=== PATIENT | male | born 2000 | race Caucasian/White ===

== ENCOUNTER 2021-12-17 19:15 | Emergency (ER) | payer MEDICAID, SELFPAY ==
[2021-12-17 19:21] VITALS: BP 131/86; PULSE 65; RESP 18; TEMP 36.7; O2SAT 99; BMI 52.7
--- NOTE | 2021-12-17 19:44 | ED.PSYCH ---
HPI - Psych General Chief Complaint: Psychiatric Symptoms Stated Complaint: hearing voices, SI Time Seen by Provider: 12/17/21 19:44 Source: patient Mode of arrival: ambulatory Limitations: no limitations History of Present Illness HPI Narrative: 21 yo male with a history of depression presents to the ER for worsening depression. He states he has been hearing a voice telling him that he doesn't deserve to live and he would feel better if he was not alive. He approached his mother today and said he needed to get help. Patient reports suffering from longstanding depression, he meets with a therapist once a week for the last 1 year. He is not on any medications. He reports slightly he has been had worsening depression and thoughts of not wanting to live any longer. He has no plan to commit suicide. He feels like he has no way to cope and he is ?just living to survive. ? He presents with his mother who is very worried about his current state. She reports he is not sleeping, not eating well and has lost a lot a weight. He had been drinking alcohol frequently but stopped 10 days ago. He denies going through withdrawal home. Only drugs he uses is marijuana. He works in a marijuana plant. MD complaint: suicidal ideation and feels depressed Onset (ago): unknown Duration: constant History of same: Yes Relieving factors: therapy Associated psychiatric symptoms: depression and suicidal ideation Associated symptoms: insomnia Treatments prior to arrival: none If self harm: admits thoughts of self harm Related Data Allergies Allergy/AdvReac Type Severity Reaction Status Date / Time amoxicillin Allergy Intermediate Rash Verified 12/17/21 19:20 Review of Systems Review of Systems: Constitutional: No Fever, No Chills ENT/Mouth: No sore throat, No Rhinorrhea Cardiovascular: No Chest Pain, No SOB, No Orthopnea, No Edema Respiratory: No Cough, No Sputum, No Wheezing, No dyspnea Gastrointestinal: No Nausea, No Vomiting, No Diarrhea, No abdominal Pain, No Hematochezia, No Melena Genitourinary: No Dysuria, No Urinary Frequency, No Hematuria Musculoskeletal: No joint pain, No Myalgias Skin: No Skin Lesions, No rash Neuro: No Weakness, No Numbness, No Dizziness, No Headache Psych: +Anxiety/Panic, + Depression, +SI, No HI, No VH, +AH Heme/Lymph: No Bruising, No Lymphadenopathy Endocrine: No Polyuria, No Polydipsia PMFSH Social History Social History Advance Directives: No Advance Directives Information Provided: No Physical Exam Vital Signs: Vital Signs: Last Vital Signs Temp 98.0 F 12/17/21 19:21 Pulse 65 12/17/21 19:21 Resp 18 12/17/21 19:21 BP 131/86 12/17/21 19:21 Pulse Ox 99 12/17/21 19:21 BMI result Body Mass Index 52.7 Appearance: Alert. Oriented X3. No acute distress. Eyes: Pupils equal, round and reactive to light. ENT: Pharynx normal. Neck: Normal inspection. Neck supple. CVS: Normal heart rate and rhythm. Pulses normal. Respiratory: No respiratory distress. Breath sounds normal. Abdomen: Soft and nontender. +BS x4 Skin: Skin warm and dry. Normal skin color. Normal skin turgor. No rashes. Extremities: No lower extremity edema. Neuro/psych: Oriented X 3. No motor deficit. No sensory deficit. CN II-XII intact. Makes eye contact, flat affect, depressed. Appropriate. Course Course Course Narrative: 21-year-old male with history of depression presents to the ER for evaluation of worsening depression and new onset of a voice telling him would be better off without him. He has no plan for suicide. He presents with his mother was worried about him. He is interested in his admission for initiation of psychiatric medications, group therapy and coping mechanisms. Will get lab workup, once medically cleared will have the crisis team evaluate him. Reevaluation(s) Reevaluation #1: Labs unremarkable. Seen by N and has been accepted into [facility] Facility in [place]. Mom to transport him there tonight. Stable for d/c. MDM - Psych Lab Data Result diagrams: 12/17/21 20:13 12/17/21 20:13 Labs: Lab Results 12/17/21 12/17/21 12/17/21 Range/Units 20:13 20:13 20:13 WBC 9.8 (4.8-10.8) X10*3/uL RBC 5.04 (4.60-5.80) X10*6/uL Hgb 14.7 (14.0-18.0) g/dl Hct 42.5 (42.0-52.0) % MCV 84.3 (80.0-98.0) fL MCH 29.2 (27.0-33.0) pg MCHC 34.6 (31.0-36.0) g/dl RDW 13.1 (11.0-16.0) % Plt Count 205 (160-400) X10*3/uL MPV 12.7 H (9.4-12.4) fL Immature Gran % (Auto) 0.4 (0.0-0.4) % Neut % (Auto) 70.3 (45-73) % Lymph % (Auto) 22.4 (20-40) % [place] % (Auto) 4.9 (2-11) % Eos % (Auto) 1.8 (0-4) % Baso % (Auto) 0.2 (0-2) % Lymph # (Auto) 2.2 (1.2-4.9) X10*3/uL [place] # (Auto) 0.5 (0.1-1.2) X10*3/uL Eos # (Auto) 0.2 (0.0-0.4) X10*3/uL Baso # (Auto) 0.0 (0.0-0.2) X10*3/uL Abs Immat Gran (auto) 0.04 H (0.00-0.03) X10*3/uL Absolute Neuts (auto) 6.9 (2.0-8.3) x10*3/uL Absolute Nucleated RBC 0.000 (0.0-0.012) X10*3/uL Nucleated RBC % (auto) 0.0 (0.0-0.2) /100WBC Sodium 142 (135-145) mmol/L Potassium 4.2 (3.3-5.1) mmol/L Chloride 107 (96-108) mmol/L Carbon Dioxide 25 (22-29) mmol/L Anion Gap 14 (12-20) BUN 9 (9-16) mg/dL Creatinine 0.89 (0.5-1.4) mg/dL Estim Creat Clear Calc 144.2 Estimated GFR > 60 Random Glucose 93 (60-115) mg/dL Calcium 9.5 (8.4-10.2) mg/dL Magnesium 2.0 (1.6-2.6) mg/dL Total Bilirubin 0.8 (0.0-1.0) mg/dL Direct Bilirubin 0.3 (0.0-0.5) mg/dL AST 37 (5-37) U/L ALT 95 H (0-40) U/L Alkaline Phosphatase 61 (39-117) U/L Total Protein 7.7 (6.5-8.0) g/dL Albumin 4.0 (3.5-5.0) g/dL Ethyl Alcohol mg/dL COVID-19 ([facility]) Negative (Negative) COVID-19 Clin Com See Note 12/17/21 Range/Units 20:13 WBC (4.8-10.8) X10*3/uL RBC (4.60-5.80) X10*6/uL Hgb (14.0-18.0) g/dl Hct (42.0-52.0) % MCV (80.0-98.0) fL MCH (27.0-33.0) pg MCHC (31.0-36.0) g/dl RDW (11.0-16.0) % Plt Count (160-400) X10*3/uL MPV (9.4-12.4) fL Immature Gran % (Auto) (0.0-0.4) % Neut % (Auto) (45-73) % Lymph % (Auto) (20-40) % [place] % (Auto) (2-11) % Eos % (Auto) (0-4) % Baso % (Auto) (0-2) % Lymph # (Auto) (1.2-4.9) X10*3/uL [place] # (Auto) (0.1-1.2) X10*3/uL Eos # (Auto) (0.0-0.4) X10*3/uL Baso # (Auto) (0.0-0.2) X10*3/uL Abs Immat Gran (auto) (0.00-0.03) X10*3/uL Absolute Neuts (auto) (2.0-8.3) x10*3/uL Absolute Nucleated RBC (0.0-0.012) X10*3/uL Nucleated RBC % (auto) (0.0-0.2) /100WBC Sodium (135-145) mmol/L Potassium (3.3-5.1) mmol/L Chloride (96-108) mmol/L Carbon Dioxide (22-29) mmol/L Anion Gap (12-20) BUN (9-16) mg/dL Creatinine (0.5-1.4) mg/dL Estim Creat Clear Calc Estimated GFR Random Glucose (60-115) mg/dL Calcium (8.4-10.2) mg/dL Magnesium (1.6-2.6) mg/dL Total Bilirubin (0.0-1.0) mg/dL Direct Bilirubin (0.0-0.5) mg/dL AST (5-37) U/L ALT (0-40) U/L Alkaline Phosphatase (39-117) U/L Total Protein (6.5-8.0) g/dL Albumin (3.5-5.0) g/dL Ethyl Alcohol < 10 mg/dL COVID-19 ([facility]) (Negative) COVID-19 Clin Com Discharge Plan Discharge Clinical Impression: Depression Patient Disposition: Xfer to Respite Facility Transfer Details: [facility] in [place] Instructions: Depression (DC) Additional Instructions: Present directly to the respite facility upon discharge
--- NOTE | 2021-12-17 20:14 | MHC.CARE ---
Smart sheet completed - [facility] clinician has been assigned to complete evaluation and will be arriving shortly
[2021-12-17 20:19] LABS: MANUAL DIFF FLAG NO
[2021-12-17 20:21] LABS: Basophils Percent Auto 0.2 % (0-2); Eosinophils Absolute Auto 0.2 X10*3/uL (0.0-0.4); Eosinophils Percent Auto 1.8 % (0-4); Hematocrit 42.5 % (42.0-52.0); Hemoglobin 14.7 g/dl (14.0-18.0); Imm Gran Abs Auto 0.04 X10*3/uL (0.00-0.03); Imm Gran Pct Auto 0.4 % (0.0-0.4); Lymphocytes Absolute Auto 2.2 X10*3/uL (1.2-4.9); Lymphocytes Percent Auto 22.4 % (20-40); Mean Corpuscular HGB Conc 34.6 g/dl (31.0-36.0); Mean Corpuscular Hemoglobin 29.2 pg (27.0-33.0); Mean Corpuscular Volume 84.3 fL (80.0-98.0); Mean Platelet Volume 12.7 fL (9.4-12.4); Monocytes Absolute Auto 0.5 X10*3/uL (0.1-1.2); Monocytes Percent Auto 4.9 % (2-11); Neutrophils Absolute Auto 6.9 x10*3/uL (2.0-8.3); Neutrophils Percent Auto 70.3 % (45-73); Platelet Count 205 X10*3/uL (160-400); Red Blood Count 5.04 X10*6/uL (4.60-5.80); Red Cell Distribution Width 13.1 % (11.0-16.0); White Blood Count 9.8 X10*3/uL (4.8-10.8)
[2021-12-17 20:31] LABS: Ethanol < 10 mg/dL
[2021-12-17 20:35] LABS: Alanine Aminotransferase 95 U/L (0-40); Alkaline Phosphatase 61 U/L (39-117); Anion Gap 14 (12-20); Aspartate Amino Transferase 37 U/L (5-37); Bilirubin Direct 0.3 mg/dL (0.0-0.5); Bilirubin Total 0.8 mg/dL (0.0-1.0); Blood Urea Nitrogen 9 mg/dL (9-16); Calcium 9.5 mg/dL (8.4-10.2); Carbon Dioxide 25 mmol/L (22-29); Chloride 107 mmol/L (96-108); Creatinine Clr Calc Pharmacy 144.2; Estimated Glomerular Filt Rate > 60; Glucose Random 93 mg/dL (60-115); Potassium 4.2 mmol/L (3.3-5.1); Sodium 142 mmol/L (135-145); Total Protein 7.7 g/dL (6.5-8.0)
[2021-12-17 20:50] LABS: COVID-19 Test Negative (Negative); IDNOW Serial# 55D5AD1C
--- NOTE | 2021-12-17 21:44 | PC.NURSE ---
pt discharged home with his mom and plan is to go to respite. steady giat. alert and oriented, skin pink warm and dry.
== END 2021-12-17 21:42 | disposition home or self-care (01) ==
PROVIDERS: Physician Assistant; Emergency Provider Emergency Medicine Emergency Medical Services; PCP Internal Medicine
DX: F33.1 Major depressive disorder, recurrent, moderate (principal); R45.851 Suicidal ideations; R44.0 Auditory hallucinations; Z20.822 Contact with and (suspected) exposure to COVID-19; Z79.899 Other long term (current) drug therapy
CPT/HCPCS: 80048; 80076; 82077; 83735; 85025; 87635; 99283

== ENCOUNTER 2023-05-02 12:01 | Emergency (ER) | payer OTHER, SELFPAY ==
--- NOTE | ~2023-05-02 | XR_ITS ---
EXAMINATION: XR ANKLE, RIGHT CLINICAL INFORMATION: Pain COMPARISON: None available. TECHNIQUE: AP, lateral, and mortise views of the right ankle. FINDINGS: Mild lateral soft tissue swelling. Vague transverse lucency distal fibula is seen without cortical disruption. Mortise is intact. Alignment and articulations maintained. XR/XR ankle RT min 3V IMPRESSION: Mild lateral malleolar soft tissue swelling. No definite fracture. If symptoms persist, consider follow-up study in 7-10 days.
[2023-05-02 12:30] VITALS: BP 127/77; PULSE 84; RESP 20; TEMP 35.6; O2SAT 99; BMI 36.2
--- NOTE | 2023-05-02 12:32 | ED_ITS ---
HPI - General Adult General Chief complaint: Extremity Problem Stated complaint: R foot pain Time Seen by Provider: 05/02/23 12:40 Source: patient Mode of arrival: ambulatory Limitations: no limitations History of Present Illness HPI narrative: Patient is a 22 year old assigned male at with no reported medical history presenting to the emergency department today with right ankle pain and swelling. Patient states that over the last 2 days he has had right ankle pain and swelling. Patient denies any dizziness, lightheadedness, abdominal pain, nausea, vomiting, fever, chills, blurry vision, double vision, loss of vision, chest pain, difficulty breathing, shortness of breath, back pain, night sweats, pain with urination, increased urinary frequency, increased urinary urgency, blood in his urine or stool, syncope or a near syncopal episode, recent trauma or falls, bowel incontinence, bladder incontinence, bowel retention, bladder retention, or any other complaints at this time. Onset (ago): day(s) (2) Location: right and lower extremity Radiation: non-radiation Severity: mild Severity scale (1-10): 3 Quality: aching and dull Pain Consistency: constant Relieving factors: none Exacerbating factors: none Associated symptoms: denies other symptoms Treatments prior to arrival: none Related Data Allergies Allergy/AdvReac Type Severity Reaction Status Date / Time amoxicillin Allergy Intermediate Rash Verified 12/17/21 19:20 Review of Systems Constitutional: Constitutional: Reports no additional constitutional complaints, Denies chills, Denies fever(s) and Denies night sweats Eyes: Eyes: Reports no additional eye complaints, Denies blurry vision, Denies change in vision, Denies diplopia, Denies eye discharge, Denies loss of vision and Denies eye pain ENT: Denies dizziness Cardiovascular: Cardiovascular: Reports no additional cardiovascular complaints, Denies chest pain, Denies lightheadedness, Denies Loss of Consciousness and Denies dyspnea Respiratory: Respiratory: Reports no additional respiratory complaints and Denies dyspnea Gastrointestinal: Gastrointestinal: Reports no additional gastrointestinal complaints, Denies abdominal pain, Denies melena, Denies hematochezia, Denies change in bowel habits and Denies change in stool character Genitourinary: Genitourinary: Reports no additional male genitourinary complaints, Denies hematuria, Denies oliguria, Denies difficulty urinating, Denies dysuria, Denies urinary frequency, Denies urinary hesitancy, Denies urinary incontinence and Denies urinary urgency Musculoskeletal: Musculoskeletal: Reports no additional musculoskeletal complaints, Denies numbness and Denies tingling Comments: right ankle pain Neurologic: Denies dizziness, Denies loss of vision, Denies numbness and Denies tingling Psychiatric: Psychiatric: Reports no additional psychiatric complaints Endocrine: Endocrine: Reports no additional endocrine complaints Hematologic/Lymphatic: Hematologic/Lymphatic: Reports no additional hematolog ic/lymphatic complaints Allergic/Immunologic: Allergic/Immunologic: Reports no additional allergic/immunologic complaints [facility] Past Medical History Attestation statement: The following information was validated with the patient. Source: old records reviewed and nursing notes reviewed Social History Social History Advance Directives: No Advance Directives Information Provided: No Physical Exam ED Vital Signs: Vital Signs - 24 hr 05/02/23 12:30 Temperature 96.0 F L Pulse Rate 84 Respiratory Rate 20 Blood Pressure 127/77 Pulse Oximetry 99 Oxygen Delivery Method Room Air BMI result Body Mass Index 36.2 Const General: cooperative, no acute distress, alert and awake Nutritional Appearance: well nourished Orientation/consciousness: patient oriented x3 Limitations: no limitations HENMT Head: Yes normal to inspection and Yes atraumatic Ears: hearing grossly normal bilaterally and external ears normal General nose exam: Normal external nose present, no nasal discharge noted and no epistaxis Face and sinus: Yes normal facial exam, No abrasion and No laceration Mouth: Normal oral and palatal mucosa present, no drooling and no muffled voice Eyes General: appearance normal, both eyes and all related structures Periorbital: periorbital findings normal Eyelids: Yes eyelids normal Conjunctivae: conjunctivae normal Pupils: Equal, round and reactive pupils present EOM: EOMs intact bilaterally Neck Neck: Yes normal visual inspection, Yes full ROM and Yes no lymphadenopathy Chest Chest palpation & inspection: normal inspection of the chest Resp Effort & Inspection: normal respiratory effort and able to speak in complete sentences GI Inspection: Yes normal to inspection Neuro General: patient oriented x3 and moves all extremities Cranial nerves: Yes Equal, round and reactive pupils present Cognition (Neuro): normal cognition Motor exam (neuro): 5/5 motor strength present throughout Sensory Exam: Normal double simultaneous stimulation for sensation Coordination: [id number] test normal Extrem Other: right ankle pain and swelling, pain to palpation of the right lateral ankle General: Yes full ROM and Yes capillary refill normal Psych Appearance: grossly normal Mental Status: mental status grossly normal Affect: normal affect Attitude: cooperative Thought process: Normal thought process present Thought content: Normal thought content present Insight: Good insight present (Psych) Course Course Course Narrative: RME- 22 year old male presents foe evaluation of right ankle pain. Denies injury. The right lateral ankle is edematous and tender. Plan for x-ray. Procedures Orthopedic Splinting/Casting Injury #1: Side: right Lower Extremity Injury Location: ankle Lower Extremity Immobilizer: boot orthosis Medical Decision Making Medical Decision Making MDM Narrative: Patient is a 22 year old assigned male at with no reported medical history presenting to the emergency department today with right ankle pain. Patient's physical exam was as noted in the physical exam portion of this note. Patient's right ankle x-ray showed a possible fibula fracture. Given the patient's presentation, will treat as fracture. I explained my physical exam findings as well as all test results to the patient. I answered all questions asked by the patient. Patient's right foot was placed in a walking boot, without incident. Patient's PMS was intact prior to and after boot placement. I stressed the importance of the patient taking his medication as prescribed. I stressed the importance of the patient following up with his primary care provider and an orthopedic provider. I stressed the importance of the patient returning to the emergency department immediately if his symptoms were to worsen or if he were to develop any dizziness, shortness of breath, difficulty breathing, chest pain, blurry vision, loss of vision, nausea, vomiting, abdominal pain, fever, chills, back pain, or any other complaints. Patient verbalized agreement and understanding with this treatment plan and discharge. Differential Diagnosis Differential Diagnoses: The differential diagnosis associated with the presentation includes Ankle fracture Fibula fracture Tibia fracture Ankle sprain Ankle pain Independent Interpretation I performed an independent interpretation of an: Plain X-Ray Interpretation: My interpretation is in agreement with the radiologist's impression of this imaging study. EXAMINATION: XR ANKLE, RIGHT CLINICAL INFORMATION: Pain COMPARISON: None available. TECHNIQUE: AP, lateral, and mortise views of the right ankle. FINDINGS: Mild lateral soft tissue swelling. Vague transverse lucency distal fibula is seen without cortical disruption. Mortise is intact. Alignment and articulations maintained. XR/XR ankle RT min 3V IMPRESSION: Mild lateral malleolar soft tissue swelling. No definite fracture. If symptoms persist, consider follow-up study in 7-10 days. Dictated By: Beverly Stevens MD Signed By: Electronically signed by Beverly Stevens MD 05/02/23 1301 Radiology Impression Discussion of test interpretation with radiology: I have reviewed the radiologist's reading. Discharge Plan Discharge Clinical Impression: Fibula fracture Patient Disposition: Home, Self-Care Instructions: Leg Fracture (ED) Additional Instructions: Follow up with your primary care provider and an orthopedic provider. Return to the emergency department immediately if your symptoms worsen or if you develop any dizziness, shortness of breath, difficulty breathing, chest pain, blurry vision, loss of vision, nausea, vomiting, abdominal pain, fever, chills, back pain, or any other complaints. Referrals: [facility] [place] [facility] Surgeons [Provider Group] (Call to establish and follow up with an orthopedic provider.) Dolores Roldan MD [Primary Care Provider] - Stand Alone Forms: Work/School Release Print Language: Mexican
== END 2023-05-02 14:09 | disposition home or self-care (01) ==
PROVIDERS: Emergency Provider Student in an Organized Health Care Education/Training Program; PCP Internal Medicine
DX: S82.401A Unspecified fracture of shaft of right fibula, initial encounter for closed fracture (principal); X58.XXXA Exposure to other specified factors, initial encounter; Y93.9 Activity, unspecified; Y92.9 Unspecified place or not applicable; Y99.9 Unspecified external cause status
CPT/HCPCS: 73610; 99283; 99284